=== PATIENT | female | born 1985 | race Caucasian/White ===

== ENCOUNTER 2020-06-23 15:42 | Emergency (ER) | payer OTHER ==
[~2020-06-23 15:42] MED LIST: BENTYL 20MG TAB20 MG PO; BUSPIRONE HCL5 MG PO; MOBIC15 MG PO; ZOFRAN4 MG PO
[2020-06-23 16:36] LABS: HEMOGLOBIN 14.3 gm/dl (12.3-15.3); RED BLOOD COUNT 4.57 M/UL (4.00-5.10); WHITE BLOOD COUNT 8.3 K/UL (4.5-11.0)
[2020-06-23 17:01] LABS: BUN/CREATININE RATIO 15 (0-10)
== END 2020-06-24 03:38 | disposition short-term general hospital (02) ==
LOC: ER1 15:42
PROVIDERS: Student in an Organized Health Care Education/Training Program
DX: F15.10 Other stimulant abuse, uncomplicated (principal); F29 Unspecified psychosis not due to a substance or known physiological condition; Z20.822 Contact with and (suspected) exposure to COVID-19; Z90.49 Acquired absence of other specified parts of digestive tract; Z88.2 Allergy status to sulfonamides; F17.210 Nicotine dependence, cigarettes, uncomplicated
CPT/HCPCS: 80053; 80307; 82550; 82553; 83874; 84484; 84702; 85025; 93005; 96372; 99284; G0480; J1630; U0002